=== PATIENT | female | born 1930 | race Caucasian/White ===

== ENCOUNTER 2018-06-27 11:39 | Inpatient (IN) | payer MEDICARE, OTHER ==
[2018-06-27] MEDS: HYDROCODONE/APAP (5/325) TAB PO (13:43)
[2018-06-27] MEDS: ONDANSETRON (ODT) 4 MG TAB ODT (13:43)
[2018-06-27] MEDS: SOD CHLORIDE 0.9% 1,000 ML IV (14:10)
[2018-06-27 14:11] LABS: ADD MAN DIFF? NO
[2018-06-27 14:15] LABS: BASOPHILS % 0.2 % (0.0-2.0); EOSINOPHILS % 0.1 % (0.0-7.0); HEMATOCRIT 34.4 % (37.0-47.0); HEMOGLOBIN 11.3 g/dl (12.0-16.0); LYMPHOCYTES # 1.2 10^3/ul (0.8-2.9); MEAN CORPUSCULAR HEMOGLOBIN 27.2 pg (29.0-33.0); MEAN CORPUSCULAR HGB CONC 32.8 g/dl (32.0-37.0); MEAN CORPUSCULAR VOLUME 82.7 fl (82.0-101.0); MONOCYTE # 0.9 10^3/ul (0.3-0.9); MONOCYTES % 9.1 % (0.0-11.0); NEUTROPHIL # 7.5 10^3/ul (1.6-7.5); NEUTROPHILS % 78.3 % (39.0-77.0); PLATELET COUNT 286 10^3/UL (140-415); RED BLOOD COUNT 4.16 10^6/ul (4.20-5.40); RED CELL DISTRIBUTION WIDTH 15.8 % (11.5-14.5)
[2018-06-27 14:15] LABS: WHITE BLOOD COUNT 9.6 10^3/ul (4.8-10.8)
[2018-06-27] MEDS ORDERED: NACL 0.9% 3 ML SYG IV (14:30)
[2018-06-27] MEDS ORDERED: morphine 4 MG/ML VIAL IV (14:30)
[2018-06-27] MEDS ORDERED: ONDANSETRON 4 MG INJ IV (14:30)
[2018-06-27 14:35] LABS: INR 1.04; PROTIME 13.7 Sec (11.9-14.9); PT RATIO 1.1
[2018-06-27 14:36] LABS: PARTIAL THROMBOPLASTIN TIME 25.9 Sec (23.0-35.0)
[2018-06-27 14:37] LABS: ALANINE AMINOTRANSFERASE 11 IU/L (13-69); ALBUMIN 4.2 g/dl (3.3-4.9); ALBUMIN/GLOBULIN RATIO 1.16; ALKALINE PHOSPHATASE 106 IU/L (42-121); ANION GAP 16 (5-13); ASPARTATE AMINO TRANSFERASE 28 IU/L (15-46); BILIRUBIN,INDIRECT 0.1 mg/dl (0-1.1); BILIRUBIN,TOTAL 0.1 mg/dl (0.2-1.3); BLOOD UREA NITROGEN 27 mg/dl (7-20); CALCIUM 9.2 mg/dl (8.4-10.2); CARBON DIOXIDE 24 mmol/L (21-31); CHLORIDE 99 mmol/L (97-110); CREATININE 0.62 mg/dl (0.44-1.00); GLUCOSE 110 mg/dl (70-220); POTASSIUM 4.8 mmol/L (3.5-5.1); SODIUM 139 mmol/L (135-144); TOTAL PROTEIN 7.8 g/dl (6.1-8.1)
[2018-06-27] MEDS: ACETAMINOPHEN 325 MG TAB PO ×2 (15:49→22:28)
[2018-06-27] MEDS: FAMOTIDINE 20 MG INJ IV (22:28)
[2018-06-27] MEDS ORDERED: traMADol 50 MG TAB PO (22:30)
[2018-06-28 05:13] LABS: ADD MAN DIFF? NO
[2018-06-28 05:17] LABS: BASOPHILS % 0.3 % (0.0-2.0); EOSINOPHILS % 0.6 % (0.0-7.0); HEMATOCRIT 30.5 % (37.0-47.0); LYMPHOCYTES # 1.3 10^3/ul (0.8-2.9); LYMPHOCYTES % 19.6 % (15.0-51.0); MEAN CORPUSCULAR HEMOGLOBIN 27.1 pg (29.0-33.0); MEAN CORPUSCULAR HGB CONC 32.8 g/dl (32.0-37.0); MEAN CORPUSCULAR VOLUME 82.7 fl (82.0-101.0); MEAN PLATELET VOLUME 10.3 fl (7.4-10.4); MONOCYTE # 0.9 10^3/ul (0.3-0.9); MONOCYTES % 14.4 % (0.0-11.0); NEUTROPHIL # 4.2 10^3/ul (1.6-7.5); NEUTROPHILS % 64.6 % (39.0-77.0); PLATELET COUNT 243 10^3/UL (140-415); RED BLOOD COUNT 3.69 10^6/ul (4.20-5.40); RED CELL DISTRIBUTION WIDTH 15.8 % (11.5-14.5)
[2018-06-28 05:17] LABS: WHITE BLOOD COUNT 6.5 10^3/ul (4.8-10.8)
[2018-06-28 05:29] LABS: HEMOGLOBIN A1C 5.7 % (0-5.9)
[2018-06-28 05:36] LABS: ALANINE AMINOTRANSFERASE 14 IU/L (13-69); ALBUMIN 3.4 g/dl (3.3-4.9); ALBUMIN/GLOBULIN RATIO 1.09; ALKALINE PHOSPHATASE 86 IU/L (42-121); ANION GAP 10 (5-13); ASPARTATE AMINO TRANSFERASE 28 IU/L (15-46); BILIRUBIN,INDIRECT 0.5 mg/dl (0-1.1); BILIRUBIN,TOTAL 0.5 mg/dl (0.2-1.3); BLOOD UREA NITROGEN 21 mg/dl (7-20); CALCIUM 8.7 mg/dl (8.4-10.2); CARBON DIOXIDE 23 mmol/L (21-31); CHLORIDE 103 mmol/L (97-110); CREATININE 0.67 mg/dl (0.44-1.00); MAGNESIUM 1.9 mg/dl (1.7-2.5); POTASSIUM 4.4 mmol/L (3.5-5.1); SODIUM 136 mmol/L (135-144); TOTAL PROTEIN 6.5 g/dl (6.1-8.1)
[2018-06-28 05:41] LABS: GLUCOSE 102 mg/dl (70-220)
[2018-06-28] MEDS: ACETAMINOPHEN 325 MG TAB PO (06:32)
[2018-06-28] MEDS: FAMOTIDINE 20 MG INJ IV (11:34)
[2018-06-28] MEDS: DEXTROSE 5%-0.45% NACL 1,000 ML IV (11:35)
[2018-06-28 12:24] LABS: ADD UMIC YES; UR ASCORBIC ACID NEGATIVE (NEGATIVE); UR BILIRUBIN (Dip) NEGATIVE (NEGATIVE); UR BLOOD (Dip) 1+ mg/dL (NEGATIVE); UR CLARITY CLEAR (CLEAR); UR COLOR YELLOW (YELLOW); UR GLUCOSE (Dip) NEGATIVE (NEGATIVE); UR KETONES (Dip) NEGATIVE (NEGATIVE); UR LEUKOCYTE ESTERASE (Dip) TRACE Leu/ul (NEGATIVE); UR MUCUS FEW /HPF (NONE SEEN); UR NITRITE (Dip) NEGATIVE (NEGATIVE); UR RBC 29 /HPF (0-5); UR SPECIFIC GRAVITY (Dip) 1.031 (1.003-1.030); UR TOTAL PROTEIN (Dip) NEGATIVE (NEGATIVE); UR UROBILINOGEN (Dip) 1+ mg/dL (NEGATIVE); UR WBC 6 /HPF (0-5)
[2018-06-28 14:11] LABS: IMMEDIATE SPIN CROSSMATCH 1 2
[2018-06-28] MEDS ORDERED: PROPOFOL 20 ML (15:30)
[2018-06-28] MEDS ORDERED: NEOSTIGMINE 3 MG/3 ML SYRINGE (15:31)
[2018-06-28] MEDS ORDERED: GLYCOPYRROLATE 0.4 MG INJ (15:31)
[2018-06-28] MEDS ORDERED: DEXAMETHASONE 4 MG/ML 5 ML INJ (15:31)
[2018-06-28] MEDS ORDERED: CEFAZOLIN 1 GM INJ (15:31)
[2018-06-28] MEDS ORDERED: FENTAnyl 50 MCG/ML VIAL (15:31)
[2018-06-28] MEDS ORDERED: MIDAZOLAM 1 MG/ML 2 ML INJ (15:31)
[2018-06-28] MEDS ORDERED: ROCURONIUM 50 MG INJ (15:31)
[2018-06-28] MEDS ORDERED: ONDANSETRON 4 MG INJ (15:31)
[2018-06-28] MEDS ORDERED: morphine SULFATE/PF (10 MG/10 ML) INJ (15:32)
[2018-06-28] MEDS: POLYMYXIN/BACITRACIN 1L IRRIG (16:47)
[2018-06-28] MEDS ORDERED: EPHEDrine SULFATE 50 MG/5 ML SYG IV (19:30)
[2018-06-28] MEDS ORDERED: MIDAZOLAM 1 MG/ML 2 ML INJ IV (19:30)
[2018-06-28] MEDS ORDERED: morphine 4 MG/ML VIAL IV (19:30)
[2018-06-28] MEDS ORDERED: DIPHENHYDRAMINE 50 MG INJ IV ×2 (19:30)
[2018-06-28] MEDS ORDERED: HYDROmorphONE 1 MG/5 ML IV SYRINGE IV ×3 (19:30)
[2018-06-28] MEDS ORDERED: KETOROLAC 15 MG INJ IV (19:30)
[2018-06-28] MEDS ORDERED: ZOLPIDEM 5 MG TAB PO (19:30)
[2018-06-28] MEDS ORDERED: IPRATROPIUM (NEB) 0.5 MG/2.5 ML AMP HHN (19:30)
[2018-06-28] MEDS ORDERED: MEPERIDINE 25 MG INJ IV (19:30)
[2018-06-28] MEDS ORDERED: NALOXONE (0.4 MG/ML) INJ IV (19:30)
[2018-06-28] MEDS ORDERED: FENTAnyl 50 MCG/ML VIAL IV ×3 (19:30)
[2018-06-28] MEDS ORDERED: ALBUTEROL 0.083% (NEB) 2.5 MG/3 ML AMP HHN (19:30)
[2018-06-28] MEDS ORDERED: ONDANSETRON 4 MG INJ IV ×2 (19:30)
[2018-06-28] MEDS ORDERED: hydrALAzine 20 MG INJ IV (19:30)
[2018-06-28] MEDS ORDERED: TRIMETHOBENZAMIDE 100 MG/ML VIAL IM ×2 (19:30)
[2018-06-28] MEDS ORDERED: OXYCODONE/ACETAMINOPHEN (5/325) TAB PO ×2 (19:30)
[2018-06-28] MEDS ORDERED: NALBUPHINE HCL (10 MG/1 ML) INJ IV (19:30)
[2018-06-28] MEDS ORDERED: HYDROmorphONE 0.5 MG/0.5 ML SYG IV ×2 (19:30)
[2018-06-28] MEDS ORDERED: LABETALOL HCL 20MG INJ IV (19:30)
[2018-06-28] MEDS: CEFAZOLIN 1 GM/50 ML (PMX) 50 ML IVPB (20:10)
[2018-06-28 20:17] LABS: ADD MAN DIFF? NO; BASOPHILS % 0.3 % (0.0-2.0); EOSINOPHILS # 0.1 10^3/ul (0.0-0.5); EOSINOPHILS % 0.8 % (0.0-7.0); HEMATOCRIT 31.6 % (37.0-47.0); HEMOGLOBIN 10.3 g/dl (12.0-16.0); LYMPHOCYTES # 1.3 10^3/ul (0.8-2.9); LYMPHOCYTES % 11.6 % (15.0-51.0); MEAN CORPUSCULAR HEMOGLOBIN 27.8 pg (29.0-33.0); MEAN CORPUSCULAR HGB CONC 32.6 g/dl (32.0-37.0); MEAN CORPUSCULAR VOLUME 85.4 fl (82.0-101.0); MEAN PLATELET VOLUME 9.5 fl (7.4-10.4); MONOCYTE # 0.9 10^3/ul (0.3-0.9); MONOCYTES % 8.4 % (0.0-11.0); NEUTROPHIL # 8.8 10^3/ul (1.6-7.5); NEUTROPHILS % 78.4 % (39.0-77.0); PLATELET COUNT 187 10^3/UL (140-415); RED CELL DISTRIBUTION WIDTH 15.7 % (11.5-14.5)
[2018-06-28 20:17] LABS: WHITE BLOOD COUNT 11.2 10^3/ul (4.8-10.8)
[2018-06-28 20:34] LABS: ANION GAP 9 (5-13); BLOOD UREA NITROGEN 17 mg/dl (7-20); CALCIUM 8.1 mg/dl (8.4-10.2); CARBON DIOXIDE 24 mmol/L (21-31); CHLORIDE 100 mmol/L (97-110); CREATININE 0.57 mg/dl (0.44-1.00); GLUCOSE 110 mg/dl (70-220); POTASSIUM 4.3 mmol/L (3.5-5.1); SODIUM 133 mmol/L (135-144)
[2018-06-29] MEDS: CEFAZOLIN 1 GM/50 ML (PMX) 50 ML IVPB ×2 (04:09→12:36)
[2018-06-29 05:52] LABS: ADD MAN DIFF? NO
[2018-06-29 06:07] LABS: WHITE BLOOD COUNT 8.5 10^3/ul (4.8-10.8)
[2018-06-29 06:07] LABS: BASOPHILS % 0.2 % (0.0-2.0); EOSINOPHILS % 0.4 % (0.0-7.0); HEMATOCRIT 27.7 % (37.0-47.0); HEMOGLOBIN 9.1 g/dl (12.0-16.0); LYMPHOCYTES # 1.2 10^3/ul (0.8-2.9); LYMPHOCYTES % 14.4 % (15.0-51.0); MEAN CORPUSCULAR HEMOGLOBIN 28.2 pg (29.0-33.0); MEAN CORPUSCULAR HGB CONC 32.9 g/dl (32.0-37.0); MEAN CORPUSCULAR VOLUME 85.8 fl (82.0-101.0); MEAN PLATELET VOLUME 10.6 fl (7.4-10.4); MONOCYTE # 0.9 10^3/ul (0.3-0.9); MONOCYTES % 10.7 % (0.0-11.0); NEUTROPHIL # 6.3 10^3/ul (1.6-7.5); NEUTROPHILS % 73.7 % (39.0-77.0); PLATELET COUNT 183 10^3/UL (140-415); RED BLOOD COUNT 3.23 10^6/ul (4.20-5.40); RED CELL DISTRIBUTION WIDTH 15.8 % (11.5-14.5)
[2018-06-29 06:31] LABS: ANION GAP 9 (5-13); BLOOD UREA NITROGEN 18 mg/dl (7-20); CALCIUM 8.2 mg/dl (8.4-10.2); CARBON DIOXIDE 24 mmol/L (21-31); CHLORIDE 105 mmol/L (97-110); CREATININE 0.61 mg/dl (0.44-1.00); GLUCOSE 108 mg/dl (70-220); MAGNESIUM 1.8 mg/dl (1.7-2.5); PHOSPHORUS 3.7 mg/dl (2.5-4.9); POTASSIUM 4.7 mmol/L (3.5-5.1); SODIUM 138 mmol/L (135-144)
[2018-06-29] MEDS: DEXTROSE 5%-0.45% NACL 1,000 ML IV ×2 (07:00→14:17)
[2018-06-29] MEDS: FAMOTIDINE 20 MG INJ IV (08:26)
[2018-06-29] MEDS: ENOXAPARIN 30 MG/0.3 ML SYG SC (08:32)
[2018-06-30 05:25] LABS: WHITE BLOOD COUNT 8.6 10^3/ul (4.8-10.8)
[2018-06-30 05:25] LABS: ADD MAN DIFF? NO
[2018-06-30 05:26] LABS: BASOPHILS % 0.2 % (0.0-2.0); EOSINOPHILS # 0.1 10^3/ul (0.0-0.5); EOSINOPHILS % 1.1 % (0.0-7.0); HEMATOCRIT 25.3 % (37.0-47.0); HEMOGLOBIN 8.4 g/dl (12.0-16.0); LYMPHOCYTES # 1.3 10^3/ul (0.8-2.9); LYMPHOCYTES % 14.6 % (15.0-51.0); MEAN CORPUSCULAR HEMOGLOBIN 27.8 pg (29.0-33.0); MEAN CORPUSCULAR HGB CONC 33.2 g/dl (32.0-37.0); MEAN CORPUSCULAR VOLUME 83.8 fl (82.0-101.0); MEAN PLATELET VOLUME 10.4 fl (7.4-10.4); MONOCYTE # 1.1 10^3/ul (0.3-0.9); MONOCYTES % 12.7 % (0.0-11.0); NEUTROPHIL # 6.1 10^3/ul (1.6-7.5); NEUTROPHILS % 70.8 % (39.0-77.0); PLATELET COUNT 168 10^3/UL (140-415); RED BLOOD COUNT 3.02 10^6/ul (4.20-5.40); RED CELL DISTRIBUTION WIDTH 15.9 % (11.5-14.5)
[2018-06-30 05:56] LABS: ANION GAP 7 (5-13); BLOOD UREA NITROGEN 14 mg/dl (7-20); CALCIUM 8.1 mg/dl (8.4-10.2); CARBON DIOXIDE 22 mmol/L (21-31); CHLORIDE 104 mmol/L (97-110); CREATININE 0.66 mg/dl (0.44-1.00); GLUCOSE 106 mg/dl (70-220); MAGNESIUM 1.8 mg/dl (1.7-2.5); POTASSIUM 4.3 mmol/L (3.5-5.1); SODIUM 133 mmol/L (135-144)
[2018-06-30] MEDS: FAMOTIDINE 20 MG INJ IV (08:21)
[2018-06-30] MEDS: ENOXAPARIN 30 MG/0.3 ML SYG SC (08:29)
[2018-06-30] MEDS: HYDROCODONE/APAP (5/325) TAB PO (09:21)
[2018-06-30 18:32] LABS: HEMATOCRIT 26.3 % (37.0-47.0); HEMOGLOBIN 8.8 g/dl (12.0-16.0)
[2018-06-30] MEDS: DEXTROSE 5%-0.45% NACL 1,000 ML IV (23:00)
[2018-07-01] MEDS: MAGNESIUM HYDROXIDE 30ML CUP PO (01:40)
[2018-07-01 05:29] LABS: WHITE BLOOD COUNT 8.2 10^3/ul (4.8-10.8)
[2018-07-01 05:29] LABS: ADD MAN DIFF? NO; BASOPHILS % 0.1 % (0.0-2.0); EOSINOPHILS # 0.1 10^3/ul (0.0-0.5); EOSINOPHILS % 0.9 % (0.0-7.0); HEMATOCRIT 23.9 % (37.0-47.0); HEMOGLOBIN 8.1 g/dl (12.0-16.0); LYMPHOCYTES # 1.3 10^3/ul (0.8-2.9); LYMPHOCYTES % 15.2 % (15.0-51.0); MEAN CORPUSCULAR HEMOGLOBIN 28.1 pg (29.0-33.0); MEAN CORPUSCULAR HGB CONC 33.9 g/dl (32.0-37.0); MEAN PLATELET VOLUME 10.5 fl (7.4-10.4); MONOCYTE # 0.9 10^3/ul (0.3-0.9); MONOCYTES % 10.4 % (0.0-11.0); NEUTROPHILS % 72.8 % (39.0-77.0); PLATELET COUNT 211 10^3/UL (140-415); RED BLOOD COUNT 2.88 10^6/ul (4.20-5.40); RED CELL DISTRIBUTION WIDTH 16.4 % (11.5-14.5)
[2018-07-01 06:03] LABS: ANION GAP 7 (5-13); BLOOD UREA NITROGEN 14 mg/dl (7-20); CALCIUM 7.9 mg/dl (8.4-10.2); CARBON DIOXIDE 23 mmol/L (21-31); CHLORIDE 103 mmol/L (97-110); CREATININE 0.54 mg/dl (0.44-1.00); GLUCOSE 98 mg/dl (70-220); MAGNESIUM 1.9 mg/dl (1.7-2.5); POTASSIUM 3.9 mmol/L (3.5-5.1); SODIUM 133 mmol/L (135-144)
[2018-07-01] MEDS: SENNA TAB PO (09:10)
[2018-07-01] MEDS: FAMOTIDINE 20 MG INJ IV (09:10)
[2018-07-01 10:12] LABS: HEMATOCRIT 24.9 % (37.0-47.0); HEMOGLOBIN 8.4 g/dl (12.0-16.0)
[2018-07-02] MEDS: FAMOTIDINE 20 MG INJ IV (09:37)
[2018-07-02] MEDS: SENNA TAB PO (09:37)
[2018-07-02] MEDS: HYDROCODONE/APAP (5/325) TAB PO (13:21)
[2018-07-03 06:14] LABS: ADD MAN DIFF? NO
[2018-07-03 06:18] LABS: BASOPHILS % 0.6 % (0.0-2.0); EOSINOPHILS # 0.3 10^3/ul (0.0-0.5); EOSINOPHILS % 4.5 % (0.0-7.0); HEMATOCRIT 25.9 % (37.0-47.0); HEMOGLOBIN 8.6 g/dl (12.0-16.0); LYMPHOCYTES # 1.3 10^3/ul (0.8-2.9); MEAN CORPUSCULAR HEMOGLOBIN 27.7 pg (29.0-33.0); MEAN CORPUSCULAR HGB CONC 33.2 g/dl (32.0-37.0); MEAN CORPUSCULAR VOLUME 83.5 fl (82.0-101.0); MONOCYTE # 0.7 10^3/ul (0.3-0.9); MONOCYTES % 10.7 % (0.0-11.0); NEUTROPHIL # 4.5 10^3/ul (1.6-7.5); NEUTROPHILS % 64.3 % (39.0-77.0); PLATELET COUNT 321 10^3/UL (140-415); RED CELL DISTRIBUTION WIDTH 16.7 % (11.5-14.5)
[2018-07-03 06:18] LABS: WHITE BLOOD COUNT 6.9 10^3/ul (4.8-10.8)
[2018-07-03] MEDS: SENNA TAB PO (09:21)
[2018-07-03] MEDS: MAGNESIUM HYDROXIDE 30ML CUP PO (09:21)
[2018-07-03] MEDS: FAMOTIDINE 20 MG TAB PO (09:21)
[2018-07-03] MEDS: HYDROCODONE/APAP (5/325) TAB PO (09:22)
== END 2018-07-03 14:54 | DRG 482 ==
LOC: FTE 11:39 → MS1 14:07
PROC: 0QSB04Z Reposition Right Lower Femur with Internal Fixation Device, Open Approach (ICD-10-PCS; principal; 2018-06-28 15:43)
PROC: 0QUB0KZ Supplement Right Lower Femur with Nonautologous Tissue Substitute, Open Approach (ICD-10-PCS; 2018-06-28 15:43)
PROC: 30233N1 Transfusion of Nonautologous Red Blood Cells into Peripheral Vein, Percutaneous Approach (ICD-10-PCS; 2018-06-28 15:43)
DX: S72.451A Displaced supracondylar fracture without intracondylar extension of lower end of right femur, initial encounter for closed fracture (principal); G30.9 Alzheimer's disease, unspecified; F02.80 Dementia in other diseases classified elsewhere, unspecified severity, without behavioral disturbance, psychotic disturbance, mood disturbance, and anxiety; D64.9 Anemia, unspecified; R32 Unspecified urinary incontinence; W01.0XXA Fall on same level from slipping, tripping and stumbling without subsequent striking against object, initial encounter
CPT/HCPCS: 36415; 36430; 71045; 73501; 73510; 73550; 73551; 73562; 73590; 80048; 80053; 81001; 83036; 83735; 84100; 85014; 85018; 85025; 85610; 85730; 86850; 86900; 86901; 86920; 93005; 93306; 97110; 97162; 97530; 99285-25